=== PATIENT | female | born 1985 | race Caucasian/White ===

== ENCOUNTER 2020-07-02 02:10 | Emergency (ER) | payer MEDICARE ==
[~2020-07-02] VITALS: Ht 172.7 cm; Wt 75.3 kg
[2020-07-02] MEDS ORDERED: OLANZAPINE 10 MG VIAL IM ONE ×2 (02:30→02:31)
[2020-07-02 02:31] VITALS: BP 131/72
--- NOTE | 2020-07-02 02:31 | NUR ---
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 PT PLACED ON A 5150 FOR DTO. PT PLACED IN BED 15 ON MONITOR AND PULSE OX. SITTER AT BEDSIDE.
[2020-07-02 02:44] LABS: BILIRUBIN,URINE NEGATIVE (NEGATIVE); COLOR,URINE YELLOW (YELLOW); LEUKOCYTE ESTERASE ,URINE NEGATIVE (NEGATIVE); NITRITE, URINE NEGATIVE (NEGATIVE); PROTEIN,URINE NEGATIVE (NEGATIVE); UGLUCOSE NEGATIVE (NEGATIVE); UROBILINOGEN,URINE 0.2 EU/dL (0.2)
[2020-07-02 02:45] LABS: BASOPHILS % (AUTO) 0.6 % (0.0-2.0); EOSINOPHILS % (AUTO) 3.8 % (0.0-6.0); HEMATOCRIT 41 % (33-45); HEMOGLOBIN 13.7 g/dL (11.5-14.8); LYMPHOCYTES % (AUTO) 27.1 % (20.0-44.0); MEAN CORPUSCULAR HGB CONC 33 g/dl (31.0-36.0); MEAN CORPUSCULAR VOLUME 90 fL (82-100); MONOCYTES # (AUTO) 0.6 /CMM (0.1-1.30); NEUTROPHILS # (AUTO) 4.4 /CMM (1.8-8.9); NEUTROPHILS % (AUTO) 60.5 % (43.0-81.0); PLATELET COUNT (AUTO) 241 /CMM (150-450); RED BLOOD CELL COUNT(AUTO) 4.54 MIL/uL (4.0-5.2); WHITE BLOOD COUNT (AUTO) 7.3 K/uL (4.3-11.0)
--- NOTE | 2020-07-02 02:46 | NUR ---
URINE COLLECTED, SENT TO LAB.
--- NOTE | 2020-07-02 02:49 | NUR ---
LABS COLLECTED, SENT TO LAB.
[2020-07-02 02:53] LABS: CALCIUM, SERUM 8.9 mg/dL (8.5-10.1); CARBON DIOXIDE 27 mmol/L (21-32); CHLORIDE 102 mmol/L (98-107); GLUCOSE 96 mg/dL (74-106); POTASSIUM 4.1 mmol/L (3.5-5.1); SODIUM SERUM 136 mmol/L (136-145); UREA NITROGEN, BLOOD 21 mg/dL (7-18)
[2020-07-02 02:55] LABS: ACETAMINOPHEN 0 ug/ml (10-30); ALANINE AMINOTRANSFERASE 18 U/L (12-78); ALBUMIN 3.7 g/dL (3.4-5.0); ALCOHOL, BLOOD < 3 mg/dL (0-0); ALKALINE PHOSPHATASE 91 U/L (46-116); ASPARTATE AMINOTRANSFERASE 17 U/L (15-37); BILIRUBIN,DIRECT 0.1 mg/dL (0.0-0.2); BILIRUBIN,TOTAL 0.3 mg/dL (0.2-1.0); TOTAL PROTEIN, SERUM 7.1 g/dL (6.4-8.2)
[2020-07-02] MEDS ORDERED: diphenhydrAMINE HCL 50 MG/ML VIAL ONE (04:13)
[2020-07-02] MEDS ORDERED: LORAZEPAM INJ 2 MG/ML VIAL ONE (04:14)
[2020-07-02] MEDS ORDERED: LORAZEPAM INJ 2 MG/ML VIAL IM ONE (04:30)
[2020-07-02] MEDS ORDERED: diphenhydrAMINE HCL 50 MG/ML VIAL IM ONE (04:30)
[2020-07-02] MEDS ORDERED: ACETAMINOPHEN ES 500 MG TABLET ONE (04:51)
--- NOTE | 2020-07-02 04:59 | NUR ---
CALLED FOR COVID SWAB
[2020-07-02] MEDS ORDERED: ACETAMINOPHEN ES 500 MG TABLET PO ONE (05:00)
--- NOTE | 2020-07-02 05:19 | NUR ---
SARAHID SWABBED, SENT TO LAB.
--- NOTE | 2020-07-02 06:17 | NUR ---
LAB CALLED REGARDING NEGATIVE COVID RESULT.
--- NOTE | 2020-07-02 13:05 | NUR ---
PATIENT AWAKE, ALERT, ABLE TO ANSWER QUESTIONS, ASKING FOR FOOD. CALLED [facility] FOR EVAL.
--- NOTE | 2020-07-02 13:07 | NUR ---
NANDINI 1 HOUR
--- NOTE | 2020-07-02 16:15 | NUR ---
COMPUTER NETWORKING INSTRUCTOR NANDINI AT BEDSIDE.
--- NOTE | 2020-07-02 16:33 | NUR ---
[id number] HOLD BROKEN BY BARREL RAISER NANDINI
--- NOTE | 2020-07-02 16:34 | NUR ---
[employer] SCIENTIST BROKE [id number] HOLD
--- NOTE | 2020-07-02 18:06 | NUR ---
TO WR TO WAIT FOR BETTING CLERK BY FRIEND
== END 2020-07-02 18:06 | disposition home or self-care (01) ==
LOC: ER 02:10
DX: F29 Unspecified psychosis not due to a substance or known physiological condition (principal); F15.10 Other stimulant abuse, uncomplicated; Z59.0 Homelessness
CPT/HCPCS: 36415; 80048; 80076; 80299; 80307; 80320; 81003; 84703; 85025; 87426; 96372 ×2; 99285; J1200; J2060; J3490; C9803; G0480